=== PATIENT | female | born 1995 | race Caucasian/White ===

== ENCOUNTER 2017-10-25 18:41 | Emergency (ER) | payer OTHER ==
[~2017-10-25] VITALS: Ht 170.2 cm; Wt 75.7 kg
[2017-10-25 19:13] LABS: HEMATOCRIT 44.8 % (36.0-46.0); HEMOGLOBIN 15.1 G/DL (11.9-15.5); MCH 29.7 PG (29.0-34.0); MCHC 33.7 G/DL (30.0-36.0); PLATELET COUNT 189 K/uL (156-360); RBC DIS.WIDTH-CV 12.3 % (11.8-14.6); RBC DIS.WIDTH-SD 40.4 % (39-53); RED BLOOD COUNT 5.09 M/uL (3.80-5.20)
[2017-10-25 19:14] LABS: APPEARANCE CLOUDY ((CLEAR)); BILIRUBIN NEGATIVE; BLOOD SMALL; COLOR YELLOW ((YELLOW)); GLUCOSE (STRIP) NEGATIVE; KETONES NEGATIVE; LEUKOCYTES LARGE; NITRITE POSITIVE; PROTEIN (STRIP) 30; SPECIFIC GRAVITY 1.024 (1.000-1.030); UROBILINOGEN 0.2 MG/DL (0.2-1.0)
[2017-10-25 19:24] LABS: BACTERIA RARE /HPF; CALCIUM OXALATE CRYSTALS 1+ /HPF; EPITHELIAL CELLS 2+ /HPF; MUCUS TRACE /LPF; RED BLOOD CELLS 0-5 /HPF (0-5); UCUL ADDED? YES; WHITE BLOOD CELLS TNTC /HPF (0-5)
[2017-10-25 19:25] LABS: ALBUMIN 4.4 g/dL (3.2-4.8); CHLORIDE 109 mEq/L (99-109); POTASSIUM 3.8 mEq/L (3.7-5.4); SODIUM 141 mEq/L (136-147)
[2017-10-25 19:28] LABS: GLUCOSE 84 mg/dL (70-99); TOTAL PROTEIN 7.8 g/dL (6.4-8.3)
[2017-10-25 19:29] LABS: TOTAL BILIRUBIN 0.5 mg/dL (0.0-1.0)
[2017-10-25 19:31] LABS: ALKALINE PHOSPHATASE 58 IU/L (3-129); CREATININE 0.8 mg/dL (0.6-1.3)
[2017-10-25 19:32] LABS: UREA NITROGEN (BUN) 15 mg/dL (9-23)
[2017-10-25 19:33] LABS: AST (GOT) 20 IU/L (2-34)
[2017-10-25 19:34] LABS: ALT (GPT) 16 IU/L (3-49)
[2017-10-25 19:40] LABS: QUANTITATIVE HCG < 4.0 MIU/ML
[2017-10-25 19:42] LABS: GFR ESTIMATE (CALCULATED) > 59 mL/min/
[2017-10-25] MEDS ORDERED: KEFLEX500 MG PO (21:21)
[2017-10-25 21:25] VITALS: BP 108/84
== END 2017-10-25 21:26 | disposition home or self-care (01) ==
LOC: EME 18:41
DX: N39.0 Urinary tract infection, site not specified (principal); R10.31 Right lower quadrant pain; J02.9 Acute pharyngitis, unspecified; F41.9 Anxiety disorder, unspecified; R19.7 Diarrhea, unspecified
CPT/HCPCS: 80053; 81003; 84702; 85027; 87077; 87086; 87186; 87651 90; 99281; 99285